=== PATIENT | male | born 1955 | race Caucasian/White ===

== ENCOUNTER 2018-11-29 11:07 | Inpatient (IN) ==
[2018-11-29] MEDS ORDERED: MORPHINE 4 MG/1 ML VIAL IV STA (11:58)
[2018-11-29] MEDS ORDERED: PANTOPRAZOLE 40 MG VIAL IV STA (11:58)
[2018-11-29] MEDS ORDERED: ONDANSETRON 4 MG/2 ML VIAL IV STA (11:58)
[2018-11-29 12:19] LABS: Alanine Aminotransferase 10 U/L (16-61); Albumin 3.1 G/DL (3.4-5.0); Alkaline Phosphatase 68 U/L (45-117); Amylase 21 U/L (25-115); Aspartate Amino Transferase 9 U/L (0-37); Blood Urea Nitrogen 20 MG/DL (7-18); Calcium 8.2 MG/DL (8.5-10.1); Glucose 116 MG/DL (74-106); Osmolality,Calculated 276.8 MOS/KG (273-304); Total Protein 6.3 G/DL (6.4-8.3); Troponin I < 0.015 NG/ML (0.00-0.045)
[2018-11-29 12:20] LABS: Basophils % 0.2 % (0.0-0.8); Eosinophils % 0.3 % (0.00-10.9); Lymphocytes # 0.7 10*3/uL (1.4-4.0); Lymphocytes % 6.2 % (21.2-54.2); Mean Corpuscular HGB Conc 23.3 GM/DL (32-36); Mean Corpuscular Volume 84.2 FL (87-102); Mean Platelet Volume 10.2 FL (9.6-12.0); NRBC # 0.08 10*3/uL; Neutrophils % 86.3 % (38.7-73.9); Platelet Count 258 T/CUMM (130-400); Red Blood Count 1.58 MC/CUMM (3.8-5.5); White Blood Count 10.4 T/CUMM (4-12)
[2018-11-29 12:26] LABS: Hemoglobin 3.1 GM/DL (14.0-18.0)
[2018-11-29 12:27] LABS: Hematocrit 13.3 VOL% (42.0-52.0)
[2018-11-29] MEDS ORDERED: ALBUTEROL 2.5 MG/3 ML NEB RESP TX PRN (13:07)
[2018-11-29] MEDS ORDERED: SODIUM CHLORIDE 0.9% 1,000 ML IV PRN (13:10)
[2018-11-29] MEDS ORDERED: THIAMINE 200 MG/2 ML VIAL IV STA (13:11)
[2018-11-29 13:25] LABS: PT Patient Result 10.8 SECS
[2018-11-29] MEDS ORDERED: LORazepam 2 MG/1 ML VIAL IV PRN (13:35)
[2018-11-29 14:54] LABS: Apearance,Urine CLEAR (Clear); Bacteria,Urine Occasional /HPF (Few); Bilirubin,Urine Negative (Negative); Blood, Urine Negative (Negative); Glucose,Urine (UA) Negative (Negative); Hyaline Casts,Urine 30 /LPF (0-3); Ketones,Urine 5 mg/dL (Negative); Mucus,Urine Occasional /LPF (Occasional); Nitrite,Urine Negative (Negative); Protein,Urine Negative; RBC,Urine 1 /HPF (0-4); Squamous Epithelial Cell,Urine Occasional /HPF (0-10); Urine Color Yellow (Yellow); Urine Specific Gravity 1.015 (1.001-1.035); Urine Urobilinogen < 2.0 EU/DL (0.2-1.0); WBC,Urine 2 /HPF (0-6)
[2018-11-29] MEDS: chlordiazePOXIDE 25 MG CAPSULE PO SCH ×2 (15:46→20:59)
[2018-11-29] MEDS: FOLIC ACID INJ 1 MG in SYRINGE 1 EACH IV SCH (15:46)
[2018-11-30] MEDS: PANTOPRAZOLE 40 MG VIAL IV SCH ×2 (00:15→12:43)
[2018-11-30 05:43] LABS: Basophils # 0.1 10*3/uL (0.0-0.2); Basophils % 0.7 % (0.0-0.8); Eosinophils # 0.2 10*3/uL (0.0-0.87); Eosinophils % 2.5 % (0.00-10.9); Hematocrit 21.3 VOL% (42.0-52.0); Immature Granulocytes Absolute 0.07 #; Lymphocytes # 0.8 10*3/uL (1.4-4.0); Lymphocytes % 11.4 % (21.2-54.2); Mean Corpuscular HGB Conc 29.6 GM/DL (32-36); Mean Corpuscular Volume 85.2 FL (87-102); Mean Platelet Volume 10.2 FL (9.6-12.0); NRBC # 0.08 10*3/uL; Neutrophils % 76.4 % (38.7-73.9); Platelet Count 208 T/CUMM (130-400); White Blood Count 7.3 T/CUMM (4-12)
[2018-11-30 05:48] LABS: Hemoglobin 6.3 GM/DL (14.0-18.0); PT Patient Result 10.6 SECS
[2018-11-30 06:21] LABS: Alanine Aminotransferase < 9 U/L (16-61); Albumin 3.1 G/DL (3.4-5.0); Alkaline Phosphatase 61 U/L (45-117); Aspartate Amino Transferase 9 U/L (0-37); Blood Urea Nitrogen 15 MG/DL (7-18); Calcium 8.3 MG/DL (8.5-10.1); Glucose 83 MG/DL (74-106); Osmolality,Calculated 282.1 MOS/KG (273-304); Total Protein 5.9 G/DL (6.4-8.3)
[2018-11-30] MEDS ORDERED: SODIUM CHLORIDE 0.9% 1,000 ML IV PRN (07:43)
[2018-11-30] MEDS ORDERED: LACTATED RINGERS 500 ML IV SCH (08:00)
[2018-11-30] MEDS: FOLIC ACID INJ 1 MG in SYRINGE 1 EACH IV SCH (08:57)
[2018-11-30] MEDS ORDERED: CALCIUM GLUCONATE 1,000 MG in SODIUM CHLORIDE 0.9% 100 ML IV ONE (09:30)
[2018-11-30] MEDS ORDERED: FAMOTIDINE 20 MG/2 ML VIAL IV ONE ×2 (09:49→10:00)
[2018-11-30] MEDS ORDERED: LIDOCAINE 2% 5 ML VIAL ONE (12:00)
[2018-11-30] MEDS ORDERED: PROPOFOL 200 MG/20 ML VIAL IV ONE (12:00)
[2018-11-30] MEDS: chlordiazePOXIDE 25 MG CAPSULE PO SCH ×4 (12:42→21:07)
[2018-11-30 19:46] LABS: Hematocrit 29.6 VOL% (42.0-52.0)
[2018-11-30 19:52] LABS: Hemoglobin 9.1 GM/DL (14.0-18.0)
[2018-11-30] MEDS: ACETAMINOPHEN 325 MG TABLET PO PRN (21:08)
[2018-12-01] MEDS: PANTOPRAZOLE 40 MG VIAL IV SCH ×2 (00:59→13:02)
[2018-12-01 09:12] LABS: Hematocrit 30.1 VOL% (42.0-52.0)
[2018-12-01] MEDS: FOLIC ACID INJ 1 MG in SYRINGE 1 EACH IV SCH (09:20)
[2018-12-01] MEDS: chlordiazePOXIDE 25 MG CAPSULE PO SCH ×4 (09:20→20:09)
[2018-12-01] MEDS: ACETAMINOPHEN 325 MG TABLET PO PRN (20:08)
[2018-12-01] MEDS: ONDANSETRON 4 MG/2 ML VIAL IV PRN (20:53)
[2018-12-02] MEDS: PANTOPRAZOLE 40 MG VIAL IV SCH ×2 (01:28→17:41)
[2018-12-02 04:20] LABS: Calcium 7.7 MG/DL (8.5-10.1)
[2018-12-02 06:11] LABS: Basophils % 0.1 % (0.0-0.8); Eosinophils # 0.2 10*3/uL (0.0-0.87); Eosinophils % 1.1 % (0.00-10.9); Hematocrit 30.1 VOL% (42.0-52.0); Hemoglobin 8.9 GM/DL (14.0-18.0); Immature Granulocytes Absolute 0.14 #; Lymphocytes # 0.3 10*3/uL (1.4-4.0); Lymphocytes % 2.4 % (21.2-54.2); Mean Corpuscular HGB Conc 29.6 GM/DL (32-36); Mean Corpuscular Volume 91.2 FL (87-102); Mean Platelet Volume 11.2 FL (9.6-12.0); Monocytes % 4.7 % (1.7-12.7); NRBC # 0.03 10*3/uL; Neutrophils % 90.7 % (38.7-73.9); Platelet Count 139 T/CUMM (130-400); Red Cell Distribution Width 18.9 % (9.3-17.3); White Blood Count 14.2 T/CUMM (4-12)
[2018-12-02 06:33] LABS: Band Neutrophils 1 % (0-10); Lymphocytes 3 % (20-55); Platelet Estimate Decreased; Polychromasia Few; Segmented Neutrophils 93 % (50-85); Total Cells Counted 100
[2018-12-02] MEDS: FOLIC ACID 1 MG TABLET PO SCH (11:49)
[2018-12-02] MEDS: THIAMINE 100 MG TABLET PO SCH (11:49)
[2018-12-02] MEDS: chlordiazePOXIDE 25 MG CAPSULE PO SCH ×3 (17:41→20:25)
[2018-12-02 17:57] LABS: Apearance,Urine CLEAR (Clear); Bilirubin,Urine Negative (Negative); Blood, Urine Negative (Negative); Glucose,Urine (UA) Negative (Negative); Ketones,Urine Negative (Negative); Mucus,Urine Occasional /LPF (Occasional); Nitrite,Urine Negative (Negative); Protein,Urine Negative; RBC,Urine <1 /HPF (0-4); Squamous Epithelial Cell,Urine Occasional /HPF (0-10); Urine Color Yellow (Yellow); Urine Urobilinogen < 2.0 EU/DL (0.2-1.0); WBC,Urine 5 /HPF (0-6)
[2018-12-02] MEDS ORDERED: NITROGLYCERIN SL 0.4 MG TABLET SL PRN (22:55)
[2018-12-02] MEDS: MORPHINE 4 MG/1 ML VIAL IV PRN (23:21)
[2018-12-02] MEDS: ONDANSETRON 4 MG/2 ML VIAL IV PRN (23:37)
[2018-12-03] MEDS: PANTOPRAZOLE 40 MG VIAL IV SCH ×3 (01:33→23:00)
[2018-12-03] MEDS: chlordiazePOXIDE 25 MG CAPSULE PO SCH ×3 (01:35→20:09)
[2018-12-03 05:23] LABS: Basophils % 0.3 % (0.0-0.8); Eosinophils # 0.5 10*3/uL (0.0-0.87); Eosinophils % 4.3 % (0.00-10.9); Hemoglobin 8.7 GM/DL (14.0-18.0); Immature Granulocytes Absolute 0.11 #; Lymphocytes # 0.6 10*3/uL (1.4-4.0); Mean Platelet Volume 10.3 FL (9.6-12.0); Monocytes % 6.1 % (1.7-12.7); Neutrophils % 83.3 % (38.7-73.9); Platelet Count 157 T/CUMM (130-400); Red Blood Count 3.26 MC/CUMM (3.8-5.5); Red Cell Distribution Width 19.9 % (9.3-17.3); White Blood Count 11.5 T/CUMM (4-12)
[2018-12-03 05:34] LABS: Osmolality,Calculated 279.3 MOS/KG (273-304)
[2018-12-03] MEDS: FOLIC ACID 1 MG TABLET PO SCH (18:20)
[2018-12-03] MEDS: THIAMINE 100 MG TABLET PO SCH (18:20)
[2018-12-03] MEDS ORDERED: ENOXAPARIN 80 MG/0.8 ML SYRINGE SUBCUT ONE (18:33)
[2018-12-03] MEDS: MORPHINE 4 MG/1 ML VIAL IV PRN (20:09)
[2018-12-03] MEDS: MULTIVITAMIN (OCUVITE) TABLET PO SCH (20:09)
[2018-12-03] MEDS: ONDANSETRON 4 MG/2 ML VIAL IV PRN (20:09)
[2018-12-04] MEDS: MORPHINE 4 MG/1 ML VIAL IV PRN (02:25)
[2018-12-04] MEDS: ONDANSETRON 4 MG/2 ML VIAL IV PRN (02:25)
[2018-12-04 04:21] LABS: Basophils % 0.2 % (0.0-0.8); Eosinophils # 0.6 10*3/uL (0.0-0.87); Eosinophils % 5.7 % (0.00-10.9); Hematocrit 30.2 VOL% (42.0-52.0); Hemoglobin 8.8 GM/DL (14.0-18.0); Immature Granulocytes % 1.3 %; Immature Granulocytes Absolute 0.14 #; Lymphocytes # 0.5 10*3/uL (1.4-4.0); Lymphocytes % 4.9 % (21.2-54.2); Mean Corpuscular HGB Conc 29.1 GM/DL (32-36); Mean Corpuscular Volume 91.2 FL (87-102); Mean Platelet Volume 10.6 FL (9.6-12.0); Monocytes % 8.3 % (1.7-12.7); Neutrophils % 79.6 % (38.7-73.9); Platelet Count 172 T/CUMM (130-400); Red Blood Count 3.31 MC/CUMM (3.8-5.5); Red Cell Distribution Width 20.2 % (9.3-17.3)
[2018-12-04 04:44] LABS: Calcium 8.2 MG/DL (8.5-10.1); Osmolality,Calculated 280.1 MOS/KG (273-304)
[2018-12-04 04:54] LABS: Anisocytosis Slight; Eosinophils 1 % (0-10); Lymphocytes 4 % (20-55); Microcytosis 1+; Segmented Neutrophils 90 % (50-85); Total Cells Counted 100
[2018-12-04 04:55] LABS: Polychromasia Few; Stomatocytes Slight
[2018-12-04 04:56] LABS: Platelet Estimate Normal
[2018-12-04] MEDS: chlordiazePOXIDE 25 MG CAPSULE PO SCH ×2 (05:48→08:21)
[2018-12-04] MEDS: MULTIVITAMIN (OCUVITE) TABLET PO SCH ×2 (08:21→20:47)
[2018-12-04] MEDS: FOLIC ACID 1 MG TABLET PO SCH (08:21)
[2018-12-04] MEDS: THIAMINE 100 MG TABLET PO SCH (08:22)
[2018-12-04] MEDS ORDERED: traMADol 50 MG TABLET PO PRN (08:41)
[2018-12-04] MEDS ORDERED: chlordiazePOXIDE 25 MG CAPSULE PO PRN ×2 (08:42→10:05)
[2018-12-04] MEDS ORDERED: LORazepam 2 MG/1 ML VIAL IV ONE (11:43)
[2018-12-04] MEDS: PANTOPRAZOLE 40 MG VIAL IV SCH (12:22)
[2018-12-04] MEDS: LACTULOSE 20 GM/30 ML UDCUP PO SCH ×2 (12:23→20:47)
[2018-12-04] MEDS: cloNIDine 0.1 MG TABLET PO SCH ×2 (12:23→20:47)
[2018-12-05] MEDS: PANTOPRAZOLE 40 MG VIAL IV SCH ×2 (00:41→14:34)
[2018-12-05 05:26] LABS: INR 1.1; PT Patient Result 11.8 SECS
[2018-12-05 05:32] LABS: Albumin 2.9 G/DL (3.4-5.0); Bilirubin,Total 0.9 MG/DL (0.2-1.0); Calcium 8.7 MG/DL (8.5-10.1); Osmolality,Calculated 279.1 MOS/KG (273-304)
[2018-12-05 06:02] LABS: Basophils # 0.1 10*3/uL (0.0-0.2); Basophils % 0.5 % (0.0-0.8); Eosinophils # 0.6 10*3/uL (0.0-0.87); Eosinophils % 6.4 % (0.00-10.9); Hematocrit 31.8 VOL% (42.0-52.0); Hemoglobin 9.1 GM/DL (14.0-18.0); Immature Granulocytes % 1.1 %; Immature Granulocytes Absolute 0.11 #; Lymphocytes # 0.9 10*3/uL (1.4-4.0); Lymphocytes % 8.7 % (21.2-54.2); Mean Corpuscular HGB Conc 28.6 GM/DL (32-36); Mean Corpuscular Volume 92.2 FL (87-102); Mean Platelet Volume 10.6 FL (9.6-12.0); Neutrophils % 75.3 % (38.7-73.9); Platelet Count 202 T/CUMM (130-400); Red Blood Count 3.45 MC/CUMM (3.8-5.5); Red Cell Distribution Width 19.9 % (9.3-17.3)
[2018-12-05 06:38] LABS: Platelet Estimate Normal
[2018-12-05 06:39] LABS: Anisocytosis 2+; Poikilocytosis Slight; Tear Drop Cells Few
[2018-12-05] MEDS ORDERED: LORazepam 2 MG/1 ML VIAL IV PRN (11:03)
[2018-12-05] MEDS: cloNIDine 0.1 MG TABLET PO SCH ×2 (12:54→21:08)
[2018-12-05] MEDS: FOLIC ACID 1 MG TABLET PO SCH (12:54)
[2018-12-05] MEDS: MULTIVITAMIN (OCUVITE) TABLET PO SCH ×2 (12:55→21:07)
[2018-12-05] MEDS: THIAMINE 100 MG TABLET PO SCH (12:55)
[2018-12-05] MEDS: LACTULOSE 20 GM/30 ML UDCUP PO SCH ×2 (14:40→21:07)
[2018-12-06] MEDS: PANTOPRAZOLE 40 MG VIAL IV SCH ×2 (00:41→13:16)
[2018-12-06 05:12] LABS: Basophils # 0.1 10*3/uL (0.0-0.2); Basophils % 0.5 % (0.0-0.8); Eosinophils # 0.5 10*3/uL (0.0-0.87); Eosinophils % 4.4 % (0.00-10.9); Hematocrit 29.5 VOL% (42.0-52.0); Hemoglobin 8.6 GM/DL (14.0-18.0); Immature Granulocytes % 0.4 %; Immature Granulocytes Absolute 0.04 #; Lymphocytes # 0.6 10*3/uL (1.4-4.0); Lymphocytes % 5.5 % (21.2-54.2); Mean Corpuscular HGB Conc 29.2 GM/DL (32-36); Mean Corpuscular Volume 90.8 FL (87-102); Mean Platelet Volume 12.4 FL (9.6-12.0); Monocytes % 6.1 % (1.7-12.7); Neutrophils % 83.1 % (38.7-73.9); Platelet Count 158 T/CUMM (130-400); Red Blood Count 3.25 MC/CUMM (3.8-5.5); Red Cell Distribution Width 19.4 % (9.3-17.3); White Blood Count 10.1 T/CUMM (4-12)
[2018-12-06 05:13] LABS: Calcium 8.7 MG/DL (8.5-10.1); Osmolality,Calculated 283.8 MOS/KG (273-304)
[2018-12-06 06:26] LABS: Albumin 2.8 G/DL (3.4-5.0); Bilirubin,Direct 0.23 MG/DL (0.0-0.20); Bilirubin,Indirect 0.4 MG/DL (0.0-1.0); Bilirubin,Total 0.6 MG/DL (0.2-1.0); Total Protein 5.9 G/DL (6.4-8.3)
[2018-12-06] MEDS: LACTULOSE 20 GM/30 ML UDCUP PO SCH ×2 (08:48→21:39)
[2018-12-06] MEDS: cloNIDine 0.1 MG TABLET PO SCH ×3 (08:48→21:39)
[2018-12-06] MEDS: THIAMINE 100 MG TABLET PO SCH (08:49)
[2018-12-06] MEDS: FOLIC ACID 1 MG TABLET PO SCH (08:49)
[2018-12-06] MEDS: MULTIVITAMIN (OCUVITE) TABLET PO SCH ×2 (08:49→21:39)
[2018-12-06] MEDS ORDERED: TUBERCULIN SKIN TEST 0.1 ML SYRINGE INTRADERM ONE (12:30)
[2018-12-06] MEDS ORDERED: POTASSIUM CHLORIDE 20 MEQ TABLET PO ONE (15:02)
[2018-12-07] MEDS: PANTOPRAZOLE 40 MG VIAL IV SCH (00:34)
[2018-12-07 07:26] VITALS: BP 144/78
[2018-12-07] MEDS: FOLIC ACID 1 MG TABLET PO SCH (08:19)
[2018-12-07] MEDS: MULTIVITAMIN (OCUVITE) TABLET PO SCH (08:19)
[2018-12-07] MEDS: cloNIDine 0.1 MG TABLET PO SCH (08:19)
[2018-12-07] MEDS: LACTULOSE 20 GM/30 ML UDCUP PO SCH (08:20)
[2018-12-07] MEDS: THIAMINE 100 MG TABLET PO SCH (08:21)
[2018-12-08 12:06] LABS: von Willebrand Factor Activity 173 % (55 - 200)
== END 2018-12-07 09:53 | DRG 377 ==
LOC: N.ED 11:07 → N.EDINP 13:07 → SUATTDRO 13:07 → N.ICU 14:02 → N.4E 12-01 02:14
PROVIDERS: ADMIT Internal Medicine; ATTEND Internal Medicine

== ENCOUNTER 2018-12-07 16:39 | Observation (INO) ==
[2018-12-07] MEDS ORDERED: SODIUM CHLORIDE 0.9% 500 ML IV STA (19:00)
[2018-12-07 20:11] LABS: Basophils # 0.1 10*3/uL (0.0-0.2); Eosinophils # 1.8 10*3/uL (0.0-0.87); Eosinophils % 15.4 % (0.00-10.9); Hematocrit 34.1 VOL% (42.0-52.0); Hemoglobin 9.8 GM/DL (14.0-18.0); INR 1.1; Immature Granulocytes % 0.6 %; Immature Granulocytes Absolute 0.07 #; Lymphocytes # 1.1 10*3/uL (1.4-4.0); Lymphocytes % 9.9 % (21.2-54.2); Mean Corpuscular HGB Conc 28.7 GM/DL (32-36); Mean Corpuscular Volume 90.9 FL (87-102); Mean Platelet Volume 10.3 FL (9.6-12.0); Monocytes % 6.1 % (1.7-12.7); Platelet Count 249 T/CUMM (130-400); Red Blood Count 3.75 MC/CUMM (3.8-5.5); White Blood Count 11.4 T/CUMM (4-12)
[2018-12-07 20:28] LABS: Alanine Aminotransferase 15 U/L (16-61); Albumin 3.1 G/DL (3.4-5.0); Alkaline Phosphatase 164 U/L (45-117); Aspartate Amino Transferase 16 U/L (0-37); Blood Urea Nitrogen 10 MG/DL (7-18); Calcium 8.9 MG/DL (8.5-10.1); Glucose 87 MG/DL (74-106); Osmolality,Calculated 285.7 MOS/KG (273-304); Total Protein 6.6 G/DL (6.4-8.3)
[2018-12-07 20:57] LABS: Anisocytosis 1+; Band Neutrophils 3 % (0-10); Eosinophils 10 % (0-10); Lymphocytes 6 % (20-55); Platelet Estimate Adequate; Segmented Neutrophils 77 % (50-85); Spherocytes Few; Total Cells Counted 100
[2018-12-07] MEDS ORDERED: hydrALAZINE 20 MG/1 ML VIAL ONE (21:40)
[2018-12-07] MEDS ORDERED: hydrALAZINE 20 MG/1 ML VIAL IV STA (21:40)
[2018-12-07 22:24] LABS: Apearance,Urine CLEAR (Clear); Bilirubin,Urine Negative (Negative); Blood, Urine Large mg/dL (Negative); Glucose,Urine (UA) Negative (Negative); Ketones,Urine 5 mg/dL (Negative); Mucus,Urine Few /LPF (Occasional); Nitrite,Urine Negative (Negative); Protein,Urine Negative; RBC,Urine 55 /HPF (0-4); Squamous Epithelial Cell,Urine Occasional /HPF (0-10); Urine Color Yellow (Yellow); Urine Specific Gravity 1.016 (1.001-1.035); Urine Urobilinogen < 2.0 EU/DL (0.2-1.0); WBC,Urine 1 /HPF (0-6)
[2018-12-07 22:29] LABS: Barbiturates Screen,Urine Negative (Negative); Benzodiazepines Screen,Urine Positive (Negative); Cannabinoid Screen,Urine Negative (Negative); Opiate Screen,Urine Negative (Negative); Phencyclidine Screen,Urine Negative (Negative)
[2018-12-07] MEDS ORDERED: ONDANSETRON 4 MG/2 ML VIAL IV PRN (23:05)
[2018-12-07] MEDS: LORazepam 2 MG/1 ML VIAL IV PRN (23:35)
[2018-12-08] MEDS: SODIUM CHLORIDE 0.9% 1,000 ML IV SCH ×4 (01:00→17:42)
[2018-12-08] MEDS: cloNIDine 0.1 MG TABLET PO SCH ×4 (09:59→21:04)
[2018-12-08] MEDS: LORazepam 2 MG/1 ML VIAL IV PRN ×2 (10:35→23:24)
[2018-12-08] MEDS ORDERED: traMADol 50 MG TABLET PO PRN (10:46)
[2018-12-08] MEDS ORDERED: ACETAMINOPHEN 325 MG TABLET PO PRN (10:46)
[2018-12-08] MEDS: HEPARIN 5,000 UNIT/1 ML VIAL SUBCUT SCH ×2 (11:47→18:37)
[2018-12-08] MEDS: PANTOPRAZOLE 40 MG TABLET PO SCH (16:14)
[2018-12-08] MEDS: LACTULOSE 20 GM/30 ML UDCUP PO SCH ×2 (20:53→21:04)
[2018-12-08] MEDS: MULTIVITAMIN (OCUVITE) TABLET PO SCH ×2 (20:53→21:04)
[2018-12-09] MEDS ORDERED: HALOPERIDOL 5 MG/ML AMP IM ONE (00:24)
[2018-12-09] MEDS: SODIUM CHLORIDE 0.9% 1,000 ML IV SCH ×3 (00:34→19:07)
[2018-12-09] MEDS: HEPARIN 5,000 UNIT/1 ML VIAL SUBCUT SCH ×4 (03:45→19:08)
[2018-12-09] MEDS ORDERED: LORazepam 2 MG/1 ML VIAL IM PRN (06:18)
[2018-12-09] MEDS: cloNIDine 0.1 MG TABLET PO SCH (09:24)
[2018-12-09] MEDS: LACTULOSE 20 GM/30 ML UDCUP PO SCH ×2 (10:34→21:48)
[2018-12-09] MEDS: PANTOPRAZOLE 40 MG TABLET PO SCH ×2 (10:34→17:48)
[2018-12-09] MEDS: FOLIC ACID 1 MG TABLET PO SCH (10:34)
[2018-12-09] MEDS: MULTIVITAMIN (OCUVITE) TABLET PO SCH ×2 (10:35→21:48)
[2018-12-09] MEDS: THIAMINE 100 MG TABLET PO SCH (10:35)
[2018-12-09] MEDS ORDERED: cloNIDine 0.1 MG TABLET PO ONE (11:38)
[2018-12-09] MEDS ORDERED: amLODIPine 5 MG TABLET PO ONE (12:30)
[2018-12-09] MEDS: amLODIPine 5 MG TABLET PO SCH ×2 (13:34→21:48)
[2018-12-09] MEDS: hydroCHLOROthiazide 12.5 MG CAPSULE PO SCH (15:17)
[2018-12-10] MEDS: SODIUM CHLORIDE 0.9% 1,000 ML IV SCH (00:55)
[2018-12-10] MEDS: HEPARIN 5,000 UNIT/1 ML VIAL SUBCUT SCH ×2 (06:37→15:45)
[2018-12-10] MEDS: hydroCHLOROthiazide 12.5 MG CAPSULE PO SCH (10:53)
[2018-12-10] MEDS: LACTULOSE 20 GM/30 ML UDCUP PO SCH (10:53)
[2018-12-10] MEDS: amLODIPine 5 MG TABLET PO SCH (10:53)
[2018-12-10] MEDS: MULTIVITAMIN (OCUVITE) TABLET PO SCH (10:53)
[2018-12-10] MEDS: THIAMINE 100 MG TABLET PO SCH (10:53)
[2018-12-10] MEDS: FOLIC ACID 1 MG TABLET PO SCH (10:53)
[2018-12-10] MEDS: PANTOPRAZOLE 40 MG TABLET PO SCH ×2 (10:54→15:45)
[2018-12-10 16:35] VITALS: BP 172/94
[2018-12-10] MEDS ORDERED: cloNIDine 0.1 MG TABLET PO SCH (21:00)
== END 2018-12-10 19:45 | disposition home health service (06) ==
LOC: N.EDINP 16:39 → N.ED 16:39 → N.EDINP 12-08 → N.5E 12-08 00:08
PROVIDERS: ADMIT Internal Medicine; ATTEND Internal Medicine